=== PATIENT | female | born 1940 | race Caucasian/White ===

== ENCOUNTER 2020-11-05 19:43 | Inpatient (IN) | payer MEDICARE, BC ==
[~2020-11-05] VITALS: Ht 152.4 cm; Wt 60.6 kg
[2020-11-05] MEDS ORDERED: ASPIRIN 81 MG CHEW TABLET PO ONE (20:00)
[2020-11-05] MEDS ORDERED: methylPREDNISolone 125MG 2ML VIAL IV ONE (20:00)
[2020-11-05] MEDS ORDERED: IPRATROPIUM 0.5MG/ALBUTEROL 2.5MG INH SOL UD 3ML (DUONEB) NEB PRN (20:00)
[2020-11-05] MEDS ORDERED: METOPROLOL TART 25 MG TABLET PO ONE (20:15)
[2020-11-05] MEDS: METOPROLOL 5 MG/5 ML VIAL IV SCH ×3 (20:20→20:27)
[2020-11-05 20:27] VITALS: BP 153/93
--- NOTE | 2020-11-05 20:34 | REPVR ---
PROCEDURE INFORMATION: Exam: XR Chest Exam date and time: 11/05/2020 7:59 PM Age: 80 years old Clinical indication: Cough and dyspnea; Additional info: Dyspnea/cough TECHNIQUE: Imaging protocol: XR of the chest. Views: 1 view. COMPARISON: No relevant prior studies available. FINDINGS: Tubes, catheters and devices: Dual chamber cardiac pacer demonstrated with intact wires. Lungs: Bilateral airspace infiltrates. Pleural spaces: Possible small left pleural effusion. Heart/Mediastinum: Status post TAVR. Bones/joints: Status post ORIF proximal left humerus. IMPRESSION: 1. Bilateral airspace infiltrates. 2. Possible small left pleural effusion. Electronically signed by: Chema Rubio On 11/05/2020 20:34:02 PM
[2020-11-05 20:55] LABS: BILIRUBIN,DIRECT 0.4 MG/DL (0.0-0.2); BILIRUBIN,TOTAL 1.6 MG/DL (0.2-1.0); CALCIUM LEVEL 8.5 MG/DL (8.8-10.2); CK-MB VALUE MASS 1.2 NG/ML (<3.6); CREATININE FOR GFR 1.52 MG/DL (0.55-1.30); GLOMERULAR FILTRATION RATE 34.9 (>32); POTASSIUM SERUM 4.2 MEQ/L (3.5-5.1); TOTAL PROTEIN 7.9 GM/DL (6.4-8.2); TROPONIN I 0.09 NG/ML (< 0.10)
[2020-11-05] MEDS ORDERED: ONDANSETRON 4MG/2ML VIAL IV ONE (20:55)
[2020-11-05 21:16] LABS: RSV AMPLIFICATION NEGATIVE (NEGATIVE)
[2020-11-05] MEDS ORDERED: CEFEPIME HCL 2 GM in D5W MINI-BAG PLUS 50 ML IV ONE (21:20)
[2020-11-05 21:29] LABS: BASO # 0.1 10^3/uL (0.0-0.2); BASO % 0.6 % (0.0-1.0); EOS # 0.1 10^3/uL (0.0-0.5); EOS % 0.4 % (0.0-3.0); HEMOGLOBIN 12.9 g/dl (12.0-15.5); LYMPH # 3.6 10^3/uL (1.5-5.0); LYMPH % 18.3 % (24.0-44.0); MONO # 1.3 10^3/uL (0.0-0.8); MONO % 6.4 % (2.0-8.0); NEUTROPHILS # 14.5 10^3/uL (1.5-8.5); NEUTROPHILS % 73.6 % (36.0-66.0); WHITE BLOOD COUNT 19.6 10^3/uL (4.0-10.0)
[2020-11-05] MEDS ORDERED: MOM 30ML SUSPENSION UDC PO PRN (23:00)
[2020-11-05] MEDS ORDERED: ACETAMINOPHEN TAB 650MG DOSE (2X325MG) PO PRN (23:00)
[2020-11-05] MEDS ORDERED: MAALOX 30 ML SUSP *UDC PO PRN (23:00)
[2020-11-05] MEDS ORDERED: HEPARIN SOD (PORCINE) 5000UNITS/ML 1ML VIAL/SYRINGE SC SCH (23:00)
[2020-11-05] MEDS ORDERED: NS 500 ML IV ONE (23:00)
--- NOTE | 2020-11-05 23:43 | HPEPDOC ---
[facility] Medical History & Physical Date of Admission Nov 05, 2020 Date of Service: Nov 05, 2020 History and Physical CHIEF COMPLAINT: shortness of breath HISTORY OF PRESENT ILLNESS: 80-year-old female with a past medical history of suspected mitral and aortic valve repair at [facility], atrial fibrillation status post pacemaker on Eliquis, asthma? Brought to [facility] by EMS after she developed sudden acute onset shortness of breath while in the car with her daughter in the midst of an argument. I spoke to daughter Carolann ([phone]), who reported to me concerns over medication compliance. She knows her mother takes diuretics, but suspects poor compliance and copious water intake. On arrival the patient was found to have a heart rate of approximately 150, blood pressure 138/76, saturating 97% on 4 L of oxygen. Patient continued to desaturate and required BiPAP. ABG showing respiratory acidosis. Patient received 105 mg of IV Solu-Medrol. Patient found to have a lactic acid of 8.2. BNP 3624. Creatinine 1.52. Elevated bilirubin 1.6. Patient received 2 g of cefepime in ER, As well as metoprolol 5 mg IV followed by 25 mg p.o. After ministration of metoprolol heart rate improved to 95 however became hypotensive to approximately 85 systolic. She was given a bolus of 500 cc normal saline. Admitted to hospitalist service for the management of sepsis secondary to suspected pneumonia. PAST MEDICAL HISTORY: mitral and aortic valve repair/replacement at [facility] atrial fibrillation s/p pacemaker asthma PAST SURGICAL HISTORY: pacemaker placement ORIF of the left humerus SOCIAL HISTORY: Patient denies smoking Patient denies etoh use Patient denies illicit drug use FAMILY HISTORY: reviewed with patient, unable to provide. ALLERGIES: Please see below. REVIEW OF SYSTEMS: 10 point ROS completed, relevant findings are noted in HPI. HOME MEDICATIONS: Please see below. PHYSICAL EXAMINATION: VITAL SIGNS: please see below General: NAD, comfortable HEENT: PERRLA, EOMI, sclerae clear Neck: supple, normal ROM, no JVD Respiratory: poor inspiratory effort, no wheeze appreciated CVS: RRR, normal S1, S2, no murmurs Abdo: soft, no masses, no hepatosplenomegaly, BS+, no rebound tenderness Extremities: no edema, pulses 2+ MSK: no joint deformities, normal ROM Neuro: no focal neuro deficits, moving all 4 extremities, CN2-12 intact. Strength 5/5 in all 4 extremities. No nystagmus. Psych: calm, cooperative, AAO x 3 LABORATORY DATA: See below. IMAGING: CXR on 11/05/2020 FINDINGS: Tubes, catheters and devices: Dual chamber cardiac pacer demonstrated with intact wires. Lungs: Bilateral airspace infiltrates. Pleural spaces: Possible small left pleural effusion. Heart/Mediastinum: Status post TAVR. Bones/joints: Status post ORIF proximal left humerus. IMPRESSION: 1. Bilateral airspace infiltrates. 2. Possible small left pleural effusion. MICROBIOLOGY: Please see below. ASSESSMENT: 80-year-old female with a past medical history of suspected mitral and aortic valve repair at [facility], atrial fibrillation status po st pacemaker on Eliquis, asthma, presented with acute onset shortness of breath. Suspected sepsis secondary to community-acquired pneumonia. Patient admitted under hospitalist service to ICU for BiPAP. . PLAN: Acute hypoxic respiratory failure - possibly 2/2 community acquire pneumonia vs acute CHF exacerbation - ABG showing respiratory acidosis - required bipap - pulmonary consult placed with Dr. Arnoldo luke scheduled - s/p 2g cefepime in ER - check blood cx, sputum cx - obtain non contrast CT chest - given patient's PRISCILA, contrast imaging unable to be obtained. Patient is on eliquis, suspicion for PE is low. sepsis 2/2 CAP - WBC 19.6. LA 8.2. Tachycardia and hypotension - s/p 2g IV cefepime - c/w vancomycin and cefepime - obtain MRSA screen, may DC vancomycin upon negative screen - check sputum gram stain, legionella and strep ag Elevated troponin - patient chest pain free on admission; continues to have no CP - initial trop 0.09. Repeat trop 2.62 - EKG showing afib - given ASA 324 mg once. Presently on eliquis (reports last dose 5 pm on 11/05/20) - d/w pharmacy, uncertain dosage at home. Meets criteria for eliquis 2.5 mg BID dosing - will start on lovenox 1 mg/kg q24h adjusted renal dosing - d/w Dr. Banks, cardiology consultation placed - patient wishes to be transferred to one of three facilities: [facility] and [place], [place]. Unfortunately, I was informed by all three facilities that there is no bed availability at this time. I explained this to patient, she wishes to remain at [facility] and proceed with medical mgmt. Suspect acute CHF exacerbation - BNP 3600, crackles at lung bases, CXR c/w pulmnary vascular congestion - check 2D echo - gave 500 cc bolus NS due to hypotension and elevated LA - will give gently diuresis once BP stabilizes. Ordered 20 mg IV lasix, to be injected slowly. Lactic acidosis - increased work of breathing vs sepsis - give 500 cc bolus NS - repeat LA, resolved Afib with RVR - rate improved s/p metoprolol 5 mg IV and metoprolol tartrate 25 mg PO - s/p pacemaker - on eliquis per report, resume - check 2D echo - d/w Dr. Banks, administer 0.5 mg IV digoxin, followed by 0.25 mg IV 8 hours afterwards. Elevated bilirubin - no abdo pain - check liver US - fatty liver infiltration vs congestion hepatopathy PRISCILA on possible CKD - baseline unknown - check renal US - suspect elevated in setting of sepsis - s/p 500 cc bolus, judicious use of IVF given suspect CHF exacerbation Asthma - per patient report - duonebs prn GI ppx: - pantoprazole DVT ppx: - heparin 5000 units q8h SC CODE status: DNR/DNI Contact info: I spoke to Daughter, Jesus [phone] and provided her with an update. I answered all questions in detail. Vital Signs Vital Signs Date Time Temp Pulse Resp B/P (MAP) Pulse Ox O2 Delivery O2 Flow Rate FiO2 11/05/20 23:09 NIPPV (BIPAP/CPAP) 11/05/20 22:45 77 81/51 (61) 100 11/05/20 20:28 97.8 30 4.0 11/05/20 20:21 100 Laboratory Data Labs 24H Laboratory Tests 2 11/05/20 20:07: Immature Granulocyte % (Auto) 0.7, Neutrophils (%) (Auto) 73.6H, Lymphocytes (%) (Auto) 18.3L, Monocytes (%) (Auto) 6.4, Eosinophils (%) (Auto) 0.4, Basophils (%) (Auto) 0.6, Neutrophils # (Auto) 14.5H, Lymphocytes # (Auto) 3.6, Monocytes # (Auto) 1.3H, Eosinophils # (Auto) 0.1, Basophils # (Auto) 0.1, Nucleated Red Blood Cells % (auto) 0.0, Anion Gap 16, Glomerular Filtration Rate 34.9, Lactic Acid Level 8.2*H, Calcium Level 8.5L, Total Bilirubin 1.6H, Direct Bilirubin 0.4H, Aspartate Amino Transf (AST/SGOT) 49H, Alanine Aminotransferase (ALT/SGPT) 26, Alkaline Phosphatase 159H, Total Creatine Kinase 60, Creatine Kinase MB 1.2, Creatine Kinase MB Relative Index 2.00, Troponin I 0.09, EM-[id number]-Type Natriuretic Peptide 3624H, Total Protein 7.9, Albumin 3.0L, Albumin/Globulin Ratio 0.6L, Coronavirus (COVID-19)(PCR) NEGATIVE, Influenza Type A (RT-PCR) NEGATIVE, Influenza Type B (RT-PCR) NEGATIVE, Respiratory Syncytial Virus (PCR) NEGATIVE 11/05/20 20:09: POC pH (Misc Panel) 7.256L, POC Base Excess (Misc Panel) -6.0L, POC Saturated Percent O2 (Misc) 85L, POC pO2 (Misc Panel) 58.0L, POC pCO2 (Misc Panel) 48.1H, POC HCO3 (Misc Panel) 21.4L, POC Total CO2 (Misc Panel) 23.0 CBC/BMP Laboratory Tests 11/05/20 20:07 Microbiology Microbiology 11/05/20 Blood Culture, Received Pending 11/05/20 Blood Culture, Received Pending Home Medications Scheduled Apixaban (Eliquis) 2.5 Mg Tablet, 2.5 MG PO BID Aspirin (Aspirin EC) 81 Mg Tablet.dr, 81 MG PO DAILY Atorvastatin Calcium (Atorvastatin Calcium) 40 Mg Tablet, 40 MG PO DAILY Clotrimazole (Clotrimazole) 10 Mg Fozia, 10 MG MT DAILY Cyanocobalamin (Vitamin B-12) (Vitamin B-12) 1,000 Mcg Tablet, 1,000 MCG PO DAILY Folic Acid/Multivit-Min/Lutein (Multi-Vitamin Gummies) 1 Each Tab.chew, 1 CHW PO DAILY Gabapentin (Gabapentin) 100 Mg Capsule, 100 MG PO TID Levothyroxine Sodium (Synthroid) 88 Mcg Tablet, 88 MCG PO DAILY Pantoprazole Sodium (Pantoprazole Sodium) 40 Mg Tablet., 40 MG PO BID Potassium Chloride (Potassium Chloride) 10 Meq Tab.er.prt, 10 MEQ PO DAILY Sodium Chloride (Ria-128) 2% Drops, 1 DROP OU BID Tiotropium [place] (Spiriva) 18 Mcg Cap.w.dev, 1 INHALATION INH DAILY Torsemide (Torsemide) 10 Mg Tablet, 20 MG PO DAILY Scheduled PRN Nitroglycerin (Nitrostat) 0.4 Mg Tab.subl, 0.4 MG SL NITRO PRN for CHEST PAIN Allergies Coded Allergies: ciprofloxacin (Verified Allergy, Unknown, 11/06/20) ASHLEE VAUGHAN MD Nov 05, 2020 23:43
[2020-11-06] VITALS (24 sets, daily range): BP systolic 81–112; BP diastolic 46–60; PULSE 84; O2SAT 91–96
[2020-11-06] MEDS ORDERED: VANCOMYCIN HCL 1,000 MG, VIAL MATE ADAPTER 1 EACH in NS 250 ML IV ONE (00:30)
--- NOTE | 2020-11-06 01:17 | REPVR ---
PROCEDURE INFORMATION: Exam: CT Chest Without Contrast; Diagnostic Exam date and time: 11/05/2020 11:35 PM Age: 80 years old Clinical indication: Other: Hypoxia; Additional info: Hypoxia, pneumonia? TECHNIQUE: Imaging protocol: Diagnostic computed tomography of the chest without contrast. 3D rendering (Not supervised by radiologist): MIP and/or 3D reconstructed images were created by the technologist. Radiation optimization: All CT scans at this facility use at least one of these dose optimization techniques: automated exposure control; mA and/or kV adjustment per patient size (includes targeted exams where dose is matched to clinical indication); or iterative reconstruction. COMPARISON: CR PORTABLE CHEST X-RAY 11/05/2020 8:21 PM FINDINGS: Tubes, catheters and devices: Left chest pacemaker. Trachea: Small amount of aspirated material in the trachea. Lungs: Extensive patchy bilateral airspace and ground-glass opacities. Pleural spaces: Small right and small to moderate left pleural effusions with adjacent compressive atelectasis. Heart: Status post aortic valve replacement. Cardiomegaly. Severe atherosclerotic disease of the coronary arteries. Small pericardial effusion. Coarsely calcified mitral annulus. Aorta: Atherosclerotic disease of the thoracic aorta. Lymph nodes: Unremarkable. No enlarged lymph nodes. Liver: Mild hepatomegaly. Bones/joints: Status post open reduction internal fixation of a healing left humeral neck fracture. Severe multilevel degenerative disease of the thoracic spine. Degenerative changes in the bilateral acromioclavicular joints. Mild scoliosis. Soft tissues: Unremarkable. IMPRESSION: Small right and small to moderate left pleural effusions with adjacent compressive atelectasis. Extensive patchy bilateral airspace and ground-glass opacities. Suspect congestive heart failure. Cardiomegaly. Small pericardial effusion. Electronically signed by: Cristhian Silverio On 11/06/2020 01:16:26 AM
[2020-11-06] MEDS ORDERED: ASPIRIN ENTERIC 325 MG TAB PO ONE (01:30)
[2020-11-06] MEDS ORDERED: SYNT88TA2 PO (01:43)
[2020-11-06] MEDS ORDERED: POTA10TA16 PO (01:43)
[2020-11-06] MEDS ORDERED: CYAN100050 PO (01:43)
[2020-11-06] MEDS ORDERED: NITR4TASL SL (01:43)
[2020-11-06] MEDS ORDERED: ATOR40TA75 PO (01:43)
[2020-11-06] MEDS ORDERED: MULTCHW12 PO (01:43)
[2020-11-06] MEDS ORDERED: SPIR1CAP INH (01:43)
[2020-11-06] MEDS ORDERED: CLOT10TR MT (01:43)
[2020-11-06] MEDS ORDERED: ELIQ2.5T PO (01:43)
[2020-11-06] MEDS ORDERED: ASPI-161 PO (01:43)
[2020-11-06] MEDS ORDERED: TORS10TA3 PO (01:43)
[2020-11-06] MEDS ORDERED: SODI2OPD OU (01:43)
[2020-11-06] MEDS ORDERED: GABA-1171 PO (01:43)
[2020-11-06] MEDS ORDERED: PANT40TA29 PO (01:43)
[2020-11-06] MEDS ORDERED: HOME MED LIST COMPLETE! XX SCH (01:45)
[2020-11-06] MEDS ORDERED: DIGOXIN INJ 0.5 MG/2 ML AMP (J1160) IV STA (02:03)
[2020-11-06] MEDS ORDERED: APIXABAN 2.5 MG TAB (ELIQUIS) PO SCH ×2 (02:05→09:00)
[2020-11-06] MEDS ORDERED: FUROSEMIDE 20MG/2ML VIAL (J1940) IV ONE (02:05)
--- NOTE | 2020-11-06 02:26 | REPVR ---
PROCEDURE INFORMATION: Exam: US Abdomen, Limited; Right Upper Quadrant Exam date and time: 11/06/2020 1:47 AM Age: 80 years old Clinical indication: Abnormal findings; Abnormal lab test; Elevated liver enzymes; Additional info: Elevated bilirubin TECHNIQUE: Imaging protocol: US abdomen. Real time ultrasound with image documentation. Limited exam focused on the right upper quadrant. COMPARISON: CT Chest without contrast 11/05/2020 11:46 PM FINDINGS: Liver: Mild hepatomegaly. Heterogeneity of the liver parenchyma. Gallbladder: Normal. No gallstones. There is no gallbladder wall thickening. Common bile duct: Normal. No stones. No dilation. Pancreas: Visualized pancreas is unremarkable. Right kidney: 1.2 x 1.4 x 1.6 cm simple right renal cyst. IMPRESSION: Hepatomegaly and generalized nonspecific heterogeneity of the liver parenchyma. Congestive hepatopathy is in the differential. Electronically signed by: Cristhian Silverio On 11/06/2020 02:25:50 AM
[2020-11-06] MEDS ORDERED: ENOXAPARIN 80MG/0.8ML SYRINGE (J1650 PER 10MG) SC SCH (05:00)
[2020-11-06 05:55] LABS: ABG BASE EXCESS -0.2 (-2.0-2.0); ABG HCO3 24.5 MEQ/L (22.0-26.0); ABG O2 SATURATION 98.2 % (95.0-99.0); ABG PARTIAL PRESSURE O2 118.6 mmHg (75.0-100.0); ABG STANDARD HCO3 24.4 MEQ/L (22.0-26.0); ABG TOTAL CO2 25.7 MEQ/L (23.0-31.0); ABG pH (ARTERIAL) 7.405 UNITS (7.350-7.450)
[2020-11-06] MEDS ORDERED: NITROGLYCERIN 0.4 MG SUBL TABLET SL PRN (06:40)
[2020-11-06] MEDS: TIOTROPIUM INHALER/CAPSULE (SPIRIVA) INH SCH (07:37)
[2020-11-06 08:15] LABS: BASO % 0.2 % (0.0-1.0); LYMPH % 7.3 % (24.0-44.0); MEAN CORPUSCULAR HEMOGLOBIN 35.9 pg (27.0-33.0); MEAN CORPUSCULAR VOLUME 99.6 fl (80.0-96.0); MONO # 0.2 10^3/uL (0.0-0.8); MONO % 1.4 % (2.0-8.0); NEUTROPHILS % 90.4 % (36.0-66.0); RED BLOOD COUNT 2.81 10^6/uL (4.00-5.40); WHITE BLOOD COUNT 13.3 10^3/uL (4.0-10.0)
[2020-11-06] MEDS: LEVOTHYROXINE 88MCG TABLET (0.088 MG) PO SCH (08:35)
[2020-11-06] MEDS: PANTOPRAZOLE 40MG VIAL (C9113 PER 1) IV SCH (08:38)
[2020-11-06] MEDS: GABAPENTIN 100 MG CAP PO SCH ×3 (08:39→20:24)
[2020-11-06] MEDS: ASPIRIN 81MG ENTERIC TABLET PO SCH (08:39)
[2020-11-06] MEDS: ATORVASTATIN 20 MG TAB PO SCH (08:39)
[2020-11-06 08:45] LABS: HEMOGLOBIN 10.1 g/dl (12.0-15.5); MEAN CORPUSCULAR HGB CONC 36.1 g/dl (32.0-36.5); PLATELET COUNT, AUTOMATED 172 10^3/uL (150-450)
[2020-11-06] MEDS ORDERED: POTASSIUM CHLORIDE 10MEQ SR TABLET PO SCH (09:00)
[2020-11-06] MEDS ORDERED: APIXABAN 5 MG TAB (ELIQUIS) PO SCH (09:00)
--- NOTE | 2020-11-06 09:18 | ECGEPIP ---
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 Electronically Signed on 11-06-2020 9:17:35 EDT by Riaz Crenshaw
[2020-11-06 09:36] LABS: ALBUMIN 2.3 GM/DL (3.2-5.2); BILIRUBIN,TOTAL 0.9 MG/DL (0.2-1.0); CALCIUM LEVEL 8.2 MG/DL (8.8-10.2); CREATININE FOR GFR 1.55 MG/DL (0.55-1.30); GLOMERULAR FILTRATION RATE 34.2 (>32); MAGNESIUM LEVEL 1.8 MG/DL (1.8-2.4); POTASSIUM SERUM 4.7 MEQ/L (3.5-5.1); TOTAL PROTEIN 6.7 GM/DL (6.4-8.2)
[2020-11-06] MEDS ORDERED: DIGOXIN INJ 0.5 MG/2 ML AMP (J1160) IV ONE (10:00)
--- NOTE | 2020-11-06 17:26 | IPNPDOC ---
Date Seen The patient was seen on 11/06/20. Progress Note SUBJECTIVE: Douglas was seen and examined this morning by the hospitalist service while lying in her intensive care unit bed. Patient had a quite busy overnight. After being admitted. She had had an argument with her daughter yesterday and became acutely short of breath as a result. She was brought into the emergency department where she was found to be hypoxic and hypercarbic, with decision made for BiPAP treatment. She also had atrial arrhythmia with rapid ventricular response. It was found out that patient had recently stopped taking amiodarone within last few months and been started on Cardizem. She had had some chest imaging as a result of being on the amiodarone. Patient was given both IV and oral metoprolol in the ED which made her borderline hypotensive. Patient was then given fluids and developed what appears to be flash pulmonary edema. Patient then received diuretics as a result. In addition, the patient was intolerant of her BiPAP and was switched over to Vapotherm. Upon review, the patient denies at time of morning exam any current or overnight fever, chills, night sweats, chest pain, chest pressure, palpitations. She reports her shortness of breath has improved and denies any associated pleuritic chest pain. She does have a chronic productive cough but always swallows her mucus and is not sure what color it is. She denies any abdominal pain/nause a/vomiting/diarrhea/constipation/melena/hematochezia, denies any flank pain, dysuria, or hematuria. OBJECTIVE PHYSICAL EXAMINATION: VITAL SIGNS: Please see below. GENERAL: Pleasant elderly female lying in ICU bed with telemetry and Vapotherm. She was actually dozing when we entered the room and did not appear to be in any acute distress. HEENT: Normocephalic, atraumatic. Noninjected, anicteric sclera. She has mild conjunctival pallor bilaterally. PERRLA. Oral cavity: Missing upper teeth. MMM. No pharyngeal erythema or exudate appreciated. Neck: Trachea midline. No lymphadenopathy appreciated. CARDIOVASCULAR: On telemetry with borderline bradycardic rate. Irregularly irregular rhythm with some visualized intermittent PVCs on telemetry. Possible 1/6 systolic murmur. 2+ radial pulses bilaterally. No friction rub appreciated. RESPIRATORY: On Vapotherm (65% FiO2, 5 L) and saturating at 94%. No accessory muscle use is visualized. There are bilateral wet crackles throughout most especially in the mid to lower lobes. There is no significant wheezing or rhonchi appreciated. Symmetric chest expansion. ABDOMINAL: Soft, nondistended and nontender. There is no guarding or rigidity. Normoactive bowel sounds present. On her back, there appears to be some moderate amounts of isolated fluid collection but there is no anterior ascites nor fluid shift. EXTREMITIES: Wearing bilateral teds and sequentials. When removed, there is some trace swelling but no bilateral lower extremity pitting edema is appreciated. NEUROLOGICAL: No gross focal neurologic deficits appreciated. Nondysarthric speech. LABORATORY DATA, IMAGING STUDIES, MICROBIOLOGY: Please see below. Portable chest x-ray, 11/05/2020 FINDINGS: Tubes, catheters and devices: Dual chamber cardiac pacer demonstrated with intact wires. Lungs: Bilateral airspace infiltrates. Pleural spaces: Possible small left pleural effusion. Heart/Mediastinum: Status post TAVR. Bones/joints: Status post ORIF proximal left humerus. IMPRESSION: 1. Bilateral airspace infiltrates. 2. Possible small left pleural effusion. Chest CT without contrast, 11/05/2020 FINDINGS: Tubes, catheters and devices: Left chest pacemaker. Trachea: Small amount of aspirated material in the trachea. Lungs: Extensive patchy bilateral airspace and ground-glass opacities. Pleural spaces: Small right and small to moderate left pleural effusions with adjacent compressive atelectasis. Heart: Status post aortic valve replacement. Cardiomegaly. Severe atherosclerotic disease of the coronary arteries. Small pericardial effusion. Coarsely calcified mitral annulus. Aorta: Atherosclerotic disease of the thoracic aorta. Lymph nodes: Unremarkable. No enlarged lymph nodes. Liver: Mild hepatomegaly. Bones/joints: Status post open reduction internal fixation of a healing left humeral neck fracture. Severe multilevel degenerative disease of the thoracic spine. Degenerative changes in the bilateral acromioclavicular joints. Mild scoliosis. Soft tissues: Unremarkable. IMPRESSION: Small right and small to moderate left pleural effusions with adjacent compressive atelectasis. Extensive patchy bilateral airspace and ground-glass opacities. Suspect congestive heart failure. Cardiomegaly. Small pericardial effusion. Liver ultrasound, 11/06/2020 FINDINGS: Liver: Mild hepatomegaly. Heterogeneity of the liver parenchyma. Gallbladder: Normal. No gallstones. There is no gallbladder wall thickening. Common bile duct: Normal. No stones. No dilation. Pancreas: Visualized pancreas is unremarkable. Right kidney: 1.2 x 1.4 x 1.6 cm simple right renal cyst. IMPRESSION: Hepatomegaly and generalized nonspecific heterogeneity of the liver parenchyma. Congestive hepatopathy is in the differential. ASSESSMENT AND PLAN: This is an 80-year-old woman with history of atrial arrhythmia (A. fib/a flutter) on Eliquis with a cardiac pacemaker and s/p suspected mitral and aortic valve replacements, asthma, who presented on the evening of 11/05 with acute shortness of breath following an argument with her daughter. She was found to be in rapid ventricular response with an atrial arrhythmia A. fib versus a f lutter. ABG was unremarkable, but patient had significant multiple lab abnormalities (high lactic, elevated troponins, elevated BNP, and direct hyperbilirubinemia. Was placed on BiPAP which she was intolerant of and switched over to Vapotherm. Patient was unable to be transferred due to lack of space at cardiac facilities and was kept for medical management. #Atrial arrhythmia resulting in rapid ventricular response, improved -Patient has history of a flutter/A. fib, is on Eliquis, and recently stopped amiodarone within the last few months and switched over to Cardizem as outpatient. -Status post 5 mg IV metoprolol and 25 mg oral metoprolol in the ED; patient subsequently became hypotensive -Cardiology was consulted (Dr. Banks): Per recommendations, patient was given 0.5 mg digoxin dose to then follow with 0.25 mg every 8 hours. -Patient's rate was borderline bradycardic and well controlled around 60 upon exam this morning; indicating good response to digoxin -Plan will be to check a digoxin level tomorrow and if therapeutic potentially decrease dose #Pulmonary edema likely secondary to IV fluid hydration -Patient came in with atrial arrhythmia and rapid ventricular response; was subsequently given beta-blockers and became hypotensive; then was given fluid resuscitation. Imaging showed bilateral infiltrates with left pleural effusion and BNP was 3624 (no baseline known) -Patient was started on BiPAP was intolerant of that and switched over to Vapotherm -After the fluids and subsequent pulmonary edema, patient was given diuretics -Echocardiogram was ordered upon admission; upon review, there does not appear to be an echo in patient's records. -Monitoring strict I&O's #Acute hypoxia likely secondary to hyperventilation from argument -Patient presented to the ED with chief complaint of sudden shortness of breath after being in an argument with her daughter most likely was hyperventilating -Initial ABG was unremarkable, yet patient was placed on a BiPAP which she did not tolerate. She was subsequently switched over to Vapotherm. -Patient was titrated down off the Vapotherm. Plan is to switch over to nasal cannula supplemental oxygen. -Respiratory status complicated by likely development of flash pulmonary edema from fluid hydration in the setting of hypotension and was administered diuretics -Patient has history of asthma and duo nebs as needed were started upon admission -Continue to monitor O2 saturations. #Hypotension likely secondary to beta-blockade and diuretics -Upon morning exam, blood pressure is 93/51. Patient was asymptomatic. This was likely result of her beta-blockade in the setting of atrial arrhythmia with rapid ventricular response, then was given diuretics after developing pulmonary edema -We will monitor strict I&O's -Once pressures begin to improve, will resume diuretics for fluid overload #Acute kidney injury on possible chronic kidney disease -Initial creatinine of 1.52 with follow-up of 1.55; GFR was 34; there are no previous GFR or creatinine values in [facility] system on review. -Patient did get fluids initially in the setting of hypotension but then became fluid overloaded and was diuresed -PRISCILA may be secondary to fluctuation in fluid status and short period of time, as well as lactic acidosis -We will continue to monitor repeat metabolic panels -At this time, the fluid overload status is most important to address and once patient becomes consistently normotensive, plan will be to resume diuresis. -Strict monitoring of input and output #Elevated troponins likely secondary to demand ischemia and possible stress from rapid ventricular response due to atrial arrhythmia -Patient's initial troponins were unremarkable at 0.09. On repeat they increase significantly to a peak at 3 AM on 11/06 of 3.36. -Upon trend, came down to 2 during the day and 11/06 -EKG showed atrial flutter/fib with RVR but no significant ST elevations or depressions. -Cardiology has been consulted. Per documentation, the overnight admitting team had tried to assess for transfer to cardiac catheterization capable center. Unfortunately all facilities that were contacted had no spots. -Collaborative decision was made with cardiology and hospitalist service to keep patient here for continued medical management. -Home atorvastatin continued -Patient is status post 1 dose of aspirin 325. #Leukocytosis possibly secondary to respiratory infection versus UTI versus unknown source -Initial WBC was 19 with follow-up decreasing to 13 -Absolute neutrophilia is present; procalcitonin elevated at 4 -Initial UA showed trace leuk esterase and 1+ urine bacteria -Initial lactic acidosis (lactic acid of 8.2 came down to 1.8) -Patient was started on both IV cefepime and vancomycin. Vancomycin has been stopped and we will continue with IV cefepime for now -Blood cultures x2 and urine cultures are pending #Direct hyperbilirubinemia -Initial total bilirubin 1.6, direct bilirubin 0.4 -Patient denied any abdominal pain/nausea/vomiting and exam was relatively unremarkable this morning -Liver ultrasound ordered upon admission which showed hepatomegaly and congestive hepatopathy #Lactic acidosis, resolved -Initial lactic was 8.2 that resolved on repeat to 1.8 -ABG was unremarkable. -Possibly related to congestive hepatopathy as well as PRISCILA and initial impaired ability to clear lactate -Patient also had initial leukocytosis of white blood cell count 19; came down to 13 on repeat -Initial blood cultures x2 are still pending, as is urine culture. UA was abnormal with trace leukocyte esterase and 1+ urine bacteria #Pericardial effusion -Found incidentally on chest CT. Was described as small on the impression of chest CT. -Patient did not have friction rub on exam. -Patient developed flash pulmonary edema and fluid overload upon admission. -Once pressures improved and are consistently normotensive, plan will be to resume diuresis #Reported history of asthma -As needed duo nebs added in the setting of acute hypoxia upon admission -Home Spiriva continued -Patient has now been able to transition to nasal cannula supplemental oxygen. #Abnormal UA -Initial UA showed trace leukocyte Estrace with 1+ urine bacteria -Urine culture remains pending #History of hypothyroidism -Home levothyroxine continued #DVT prophylaxis: We will resume patient's home Eliquis dose #GI prophylaxis: Continue with pantoprazole. CODE STATUS: DNR/DNI Disposition: Pending continued improvement to consistent normotensive pressures with plan to diurese in setting of fluid overload. Continue to monitor downtrend of troponins, control of heart rate, and improved leukocytosis. Of note, patient's daughter and contact center director is Carolann ([phone]). GME ATTESTATION My faculty preceptor for this patient encounter was physically present during the encounter and was fully available. All aspects of the patient interview, examination, medical decision making process, and medical care plan development were reviewed and approved by the faculty preceptor. The faculty preceptor is aware and concurs with the plan as stated in the body of this note and will attest to such by his/her cosignature. ATTENDING NOTE I personally examined and discussed the presenting history of with resident team. We discussed his findings, studies and management and I agree with the thorough summary of the findings and the assessment and plan. VS, I&O, 24H, Fishbone Vital Signs/I&O Vital Signs Date Time Temp Pulse Resp B/P (MAP) Pulse Ox O2 Delivery O2 Flow Rate FiO2 11/06/20 14:00 64 112/57 (75) 98 Nasal Cannula 4.0 11/06/20 12:00 97.2 16 11/06/20 07:06 60 I&O- Last 24 Hours up to 6 AM 11/06/20 06:00 Intake Total 390 ml Output Total 350 ml Balance 40 ml Laboratory Data 24H LABS Laboratory Tests 2 11/05/20 20:07: Immature Granulocyte % (Auto) 0.7, Neutrophils (%) (Auto) 73.6H, Lymphocytes (%) (Auto) 18.3L, Monocytes (%) (Auto) 6.4, Eosinophils (%) (Auto) 0.4, Basophils (%) (Auto) 0.6, Neutrophils # (Auto) 14.5H, Lymphocytes # (Auto) 3.6, Monocytes # (Auto) 1.3H, Eosinophils # (Auto) 0.1, Basophils # (Auto) 0.1, Nucleated Red Blood Cells % (auto) 0.0, Anion Gap 16, Glomerular Filtration Rate 34.9, Lactic Acid Level 8.2*H, Calcium Level 8.5L, Total Bilirubin 1.6H, Direct Bilirubin 0.4H, Aspartate Amino Transf (AST/SGOT) 49H, Alanine Aminotransferase (ALT/SGPT) 26, Alkaline Phosphatase 159H, Total Creatine Kinase 60, Creatine Kinase MB 1.2, Creatine Kinase MB Relative Index 2.00, Troponin I 0.09, FK-Auo-P-Type Natriuretic Peptide 3624H, Total Protein 7.9, Albumin 3.0L, Albumin/Globulin Ratio 0.6L, Coronavirus (COVID-19)(PCR) NEGATIVE, Influenza Type A (RT-PCR) NEGATIVE, Influenza Type B (RT-PCR) NEGATIVE, Respiratory Syncytial Virus (PCR) NEGATIVE 11/05/20 20:09: POC pH (Misc Panel) 7.256L, POC Base Excess (Misc Panel) -6.0L, POC Saturated Percent O2 (Misc) 85L, POC pO2 (Misc Panel) 58.0L, POC pCO2 (Misc Panel) 48.1H, POC HCO3 (Misc Panel) 21.4L, POC Total CO2 (Misc Panel) 23.0 11/06/20 00:22: Troponin I 2.62#*H 11/06/20 00:24: Lactic Acid Followup at 4 Hours 1.8 11/06/20 01:20: Methicillin-Resist S.aureus DNA PCR NOT DETECTED 11/06/20 02:57: Troponin I 3.36#*H 11/06/20 03:13: Urine Color HECTOR, Urine Appearance CLOUDYH, Urine pH 5.0, Urine Specific Ruth 1.014, Urine Protein 2+H, Urine Glucose (UA) NEGATIVE, Urine Ketones NEGATIVE, Urine Blood NEGATIVE, Urine Nitrite NEGATIVE, Urine Bilirubin NEGAT RAMIN, Urine Urobilinogen 2.0H, Urine Leukocyte Esterase TRACEH, Urine WBC (Auto) 12H, Urine RBC (Auto) 4H, Urine Hyaline Casts (Auto) 12, Urine Bacteria (Auto) 1+H, Urine Squamous Epithelial Cells 2, Urine Calcium Oxalate Cryst (Auto) SMALL, Urine Amorphous Sediment SMALLH, Urine Granular Casts (Auto) 4, Urine Mucus (Auto) SMALL, Urine Sperm (Auto) 11/06/20 05:45: Blood Gas Bicarbonate Standard 24.4, Arterial Blood pH 7.405, Arterial Blood Partial Pressure CO2 40.0, Arterial Blood Partial Pressure O2 118.6H, Arterial Blood Total CO2 25.7, Arterial Blood HCO3 24.5, Arterial Blood Base Excess -0.2, Arterial Blood Oxygen Saturation 98.2 11/06/20 07:04: Procalcitonin 4.09 11/06/20 07:09: Immature Granulocyte % (Auto) 0.7, Neutrophils (%) (Auto) 90.4H, Lymphocytes (%) (Auto) 7.3L, Monocytes (%) (Auto) 1.4L, Eosinophils (%) (Auto) 0.0, Basophils (%) (Auto) 0.2, Neutrophils # (Auto) 12.0H, Lymphocytes # (Auto) 1.0L, Monocytes # (Auto) 0.2, Eosinophils # (Auto) 0.0, Basophils # (Auto) 0.0, Nucleated Red Blood Cells % (auto) 0.0, Anion Gap 10, Glomerular Filtration Rate 34.2, Calcium Level 8.2L, Magnesium Level 1.8, Total Bilirubin 0.9, Aspartate Amino Transf (AST/SGOT) 50H, Alanine Aminotransferase (ALT/SGPT) 27, Alkaline Phosphatase 110, Troponin I 3.00*H, Total Protein 6.7, Albumin 2.3#L, Albumin/Globulin Ratio 0.5L 11/06/20 10:54: Methicillin-Resist S.aureus DNA PCR NOT DETECTED 11/06/20 11:48: Troponin I 2.44*H CBC/BMP Laboratory Tests 11/05/20 20:07 11/06/20 07:09 Microbiology Microbiology 11/06/20 Urine Culture, Received Pending 11/05/20 Blood Culture, Received Pending 11/05/20 Blood Culture, Received Pending JANINE CAMPOS D.O. Nov 06, 2020 17:26 EDMUNDO ALCANTAR MD Nov 06, 2020 18:17
[2020-11-06] MEDS ORDERED: VANCOMYCIN HCL 1,000 MG, VIAL MATE ADAPTER 1 EACH in NS 250 ML IV SCH (18:00)
[2020-11-06] MEDS: APIXABAN 2.5 MG TAB (ELIQUIS) PO SCH (20:24)
[2020-11-06] MEDS ORDERED: CEFEPIME HCL 2 GM in D5W MINI-BAG PLUS 50 ML IV SCH (21:00)
[2020-11-07] VITALS (7 sets, daily range): BP systolic 103–125; BP diastolic 56–75
[2020-11-07 05:46] LABS: ALBUMIN 2.3 GM/DL (3.2-5.2); BILIRUBIN,TOTAL 0.6 MG/DL (0.2-1.0); CALCIUM LEVEL 8.4 MG/DL (8.8-10.2); CREATININE FOR GFR 1.39 MG/DL (0.55-1.30); GLOMERULAR FILTRATION RATE 38.7 (>32); TOTAL PROTEIN 6.2 GM/DL (6.4-8.2)
[2020-11-07 05:47] LABS: DIGOXIN LEVEL 1.4 NG/ML (0.5-2.0); MAGNESIUM LEVEL 1.9 MG/DL (1.8-2.4)
[2020-11-07] MEDS: LEVOTHYROXINE 88MCG TABLET (0.088 MG) PO SCH (06:00)
[2020-11-07] MEDS: TIOTROPIUM INHALER/CAPSULE (SPIRIVA) INH SCH (07:57)
[2020-11-07] MEDS: GABAPENTIN 100 MG CAP PO SCH ×3 (08:57→20:47)
[2020-11-07] MEDS: ASPIRIN 81MG ENTERIC TABLET PO SCH (08:57)
[2020-11-07] MEDS: PANTOPRAZOLE 40MG VIAL (C9113 PER 1) IV SCH (08:57)
[2020-11-07] MEDS: ATORVASTATIN 20 MG TAB PO SCH (08:57)
[2020-11-07] MEDS: APIXABAN 2.5 MG TAB (ELIQUIS) PO SCH ×2 (08:57→20:47)
[2020-11-07] MEDS ORDERED: APIXABAN 5 MG TAB (ELIQUIS) PO SCH (09:00)
[2020-11-07 09:32] LABS: BASO % 0.2 % (0.0-1.0); HEMATOCRIT 25.1 % (36.0-47.0); HEMOGLOBIN 9.2 g/dl (12.0-15.5); LYMPH # 1.3 10^3/uL (1.5-5.0); LYMPH % 10.8 % (24.0-44.0); MEAN CORPUSCULAR HEMOGLOBIN 37.4 pg (27.0-33.0); MEAN CORPUSCULAR HGB CONC 36.7 g/dl (32.0-36.5); MONO % 8.6 % (2.0-8.0); NEUTROPHILS # 9.3 10^3/uL (1.5-8.5); PLATELET COUNT, AUTOMATED 171 10^3/uL (150-450); RED BLOOD COUNT 2.46 10^6/uL (4.00-5.40); WHITE BLOOD COUNT 11.7 10^3/uL (4.0-10.0)
[2020-11-07] MEDS: TORSEMIDE 10 MG TABLET PO SCH ×2 (11:03→18:16)
[2020-11-07] MEDS: CEFDINIR 300 MG CAP (OMNICEF) PO SCH (11:03)
[2020-11-07] MEDS: CYANOCOBALAMIN 500 MCG TAB PO SCH (11:03)
--- NOTE | 2020-11-07 15:52 | IPNPDOC ---
Date Seen The patient was seen on 11/07/20. Progress Note SUBJECTIVE: Donita was seen and examined this morning by the hospitalist service while lying in her ICU bed. She reports no significant issues overnight and was able to sleep pretty soundly throughout the evening. She denies any chest pain, chest pressure, or palpitations, either currently or during the overnight. She does not feel as if she is working harder to breathe and denies any pleuritic chest pain or dyspnea. Her appetite remains good and she has been both voiding and having bowel movements without any issues. She denies any significant pain at this time and is currently saturating well on 1 L nasal cannula supplemental oxygen. The patient is preparing to eat her breakfast when he came in the room. OBJECTIVE PHYSICAL EXAMINATION: VITAL SIGNS: Please see below. GENERAL: Pleasant elderly female lying in ICU bed on supplemental nasal cannula oxygen. She appears in no acute distress. HEENT: Normocephalic, atraumatic. Noninjected, anicteric sclera. She has mild conjunctival pallor bilaterally. PERRLA. Oral cavity: Edentulous. MMM. No pharyngeal erythema or exudate appreciated. Neck: Trachea midline. No lymphadenopathy appreciated. CARDIOVASCULAR: Patient remains on telemetry. Borderline bradycardic rate with irregularly irregular rhythm. There is a physiological split of S2 (best appreciated over the right second parasternal intercostal space). There is a 2/6 systolic murmur best appreciated over the left second parasternal intercostal space. 2+ radial pulses bilaterally. There is no friction rub appreciated with patient leaning forward. RESPIRATORY: Patient is on 1 L nasal cannula supplemental oxygen and saturating at 91%. When she takes off the NC, she desaturated slightly to 87-88%. no accessory muscle use. Metric chest expansion. There remain bilateral crackles posteriorly from the mid lung area onto the bases, but the intensity the crackles is moderately decreased from yesterday's exam. Chest: There are multiple scattered brownish colored macules and papules overlying the neck and chest. ABDOMINAL: Soft, nondistended and nontender. There is no guarding or rigidity. Normoactive bowel sounds present. No CVA tenderness. EXTREMITIES: There is trace pitting edema bilateral lower extremities. 2+ radial pulses bilaterally. NEUROLOGICAL: No gross focal neurologic deficits appreciated. Nondysarthric speech. LABORATORY DATA, IMAGING STUDIES, MICROBIOLOGY: Please see below. Portable chest x-ray, 11/05/2020 FINDINGS: Tubes, catheters and devices: Dual chamber cardiac pacer demonstrated with intact wires. Lungs: Bilateral airspace infiltrates. Pleural spaces: Possible small left pleural effusion. Heart/Mediastinum: Status post TAVR. Bones/joints: Status post ORIF proximal left humerus. IMPRESSION: 1. Bilateral airspace infiltrates. 2. Possible small left pleural effusion. Chest CT without contrast, 11/05/2020 FINDINGS: Tubes, catheters and devices: Left chest pacemaker. Trachea: Small amount of aspirated material in the trachea. Lungs: Extensive patchy bilateral airspace and ground-glass opacities. Pleural spaces: Small right and small to moderate left pleural effusions with adjacent compressive atelectasis. Heart: Status post aortic valve replacement. Cardiomegaly. Severe atherosclerotic disease of the coronary arteries. Small pericardial effusion. Coarsely calcified mitral annulus. Aorta: Atherosclerotic disease of the thoracic aorta. Lymph nodes: Unremarkable. No enlarged lymph nodes. Liver: Mild hepatomegaly. Bones/joints: Status post open reduction internal fixation of a healing left humeral neck fracture. Severe multilevel degenerative disease of the thoracic spine. Degenerative changes in the bilateral acromioclavicular joints. Mild scoliosis. Soft tissues: Unremarkable. IMPRESSION: Small right and small to moderate left pleural effusions with adjacent compressive atelectasis. Extensive patchy bilateral airspace and ground-glass opacities. Suspect congestive heart failure. Cardiomegaly. Small pericardial effusion. Liver ultrasound, 11/06/2020 FINDINGS: Liver: Mild hepatomegaly. Heterogeneity of the liver parenchyma. Gallbladder: Normal. No gallstones. There is no gallbladder wall thickening. Common bile duct: Normal. No stones. No dilation. Pancreas: Visualized pancreas is unremarkable. Right kidney: 1.2 x 1.4 x 1.6 cm simple right renal cyst. IMPRESSION: Hepatomegaly and generalized nonspecific heterogeneity of the liver parenchyma. Congestive hepatopathy is in the differential. ASSESSMENT AND PLAN: This is an 80-year-old woman with history of atrial arrhythmia (A. fib/a flutter) on Eliquis with a cardiac pacemaker and s/p suspected mitral and aortic valve replacements, and asthma, who presented on the evening of 11/05 with acute shortness of breath following an argument with her daughter. She was found to be in rapid ventricular response with an atrial arrhythmia A. fib vs flutter. ABG was unremarkable, but patient had significant multiple lab abnormalities (high lactic, elevated troponins, elevated BNP, and direct hyperbilirubinemia. Was placed on BiPAP which she was intolerant of and switched over to Vapotherm. Patient was unable to be transferred due to lack of space at cardiac facilities and was kept for medical management. On 11/07, patient's respiratory status had significantly improved and her pressures became normotensive. She was downgraded to the PCU. #Atrial arrhythmia resulting in rapid ventricular response, stable -Patient has history of a flutter/A. fib, is on Eliquis, and recently stopped amiodarone within the last few months and switched over to Cardizem as outpatient. -S/p 5 mg IV metoprolol and 25 mg oral metoprolol in the ED; patient subsequently became hypotensive -Cardiology was consulted (Dr. Banks): Per recommendations, patient was given 0.5 mg digoxin dose to then follow with 0.25 mg every 8 hours. -Digoxin level on morning of 11/07 was 1.4 -Dr. Banks transitioned pt's eliquis dosing to 2.5 mg BID (age > 80yo, ARF w/ sCr > 1.5) -Patient has been asymptomatic for the past 24 hours denying any chest pain, palpitations, or chest pressure -Continue with telemetry; downgraded to PCU status on 11/07 #Acute pulmonary edema likely secondary to IV fluid hydration, improved -Patient came in with atrial arrhythmia and rapid ventricular response; was subsequently given beta-blockers and became hypotensive; then was given fluid resuscitation. Imaging showed bilateral infiltrates with left pleural effusion and BNP was 3624 (no baseline known) -Patient was started on BiPAP - - was intolerant of that - - and initially switched over to Vapotherm. Patient has had no dyspnea for the past 24 hours and was transitioned on 11/06 to nasal cannula supplemental oxygen. -After the fluids and subsequent pulmonary edema, patient was given diuretics -On 11/07 exam, patient was saturating well and only 1 L of nasal cannula and will be transition to room air; downgraded to PCU status. -Echocardiogram was ordered upon admission and executed on 11/06 (the impression has yet to be filed) -upon review, there does not appear to be an echo in patient's records. -Patient has made decent urine output (650 mL midnight to midnight , and 500 cc since midnight 11/07); blood pressure has returned to normotensive range (118/62 on morning of 11/07) -will resume patient's home diuretic medication (torsemide 20 mg daily) #Acute hypoxia likely secondary to hyperventilation from argument, resolved -Patient presented to the ED with chief complaint of sudden shortness of breath after being in an argument with her daughter most likely was hyperventilating -Presenting oxygen saturation in the ED was measured at 66%, but to other measurements at the same time that followed were 97%. -Initial ABG was unremarkable, yet patient was placed on a BiPAP which she did not tolerate. She was subsequently switched over to Vapotherm. -Patient was titrated down off the Vapotherm on morning of 11/06 and transition to nasal cannula supplemental oxygen. 11/07, she will be transitioned to room air. -Respiratory status complicated by likely development of flash pulmonary edema from fluid hydration in the setting of hypotension and was administered diuretics -Patient has history of asthma and duo nebs as needed were started upon admission, home Spiriva continued -Has been asymptomatic from respiratory standpoint for the past 24-hour #Hypotension likely secondary to beta-blockade and diuretics, improved -This was likely result of her beta-blockade in the setting of atrial arrhythmia with rapid ventricular response, then was given diuretics after developing pul monary edema -Pressure on morning of 11/07 was 118/62. Patient remains asymptomatic. -Patient's urine output has improved over the past 24 hours (last midnight to midnight was 0.4 mL/KG/hour) -Patient's home diuretic medication was continued on 11/07 (torsemide 20 mg daily) -Continue to monitor intake and output. #Acute kidney injury on possible chronic kidney disease, improved -Potentially secondary to significant fluid shifts related to fluid hydration and then diuresis in a short period of time as well as lactic acidosis -Creatinine on 11/07 improved to 1.39 (was 1.55 on 11/06) w/ GFR was 34; there are no previous GFR or creatinine values in [facility] system on review. -Patient did get fluids initially in the setting of hypotension but then became fluid overloaded and was diuresed -Continue to monitor and repeat metabolic panels -Patient returned to normotensive range on 11/07; home diuretic medication was resumed (torsemide 20 mg daily). -Continue with I and O monitoring #Elevated troponins likely secondary to demand ischemia and possible cardiac stress from rapid ventricular response due to atrial arrhythmia, improved -Patient's initial troponins were unremarkable at 0.09. On repeat they increase significantly to a peak at 3 AM on 11/06 of 3.36. -Upon trend, came down to 2.44 on 11/06 -EKG showed atrial flutter/fib with RVR but no significant ST elevations or depressions. -Cardiology has been consulted. Per documentation, the overnight admitting team had tried to assess for transfer to cardiac catheterization capable center. Unfortunately all facilities that were contacted had no spots. -Collaborative decision was made with cardiology and hospitalist service to keep patient here for continued medical management. -Home atorvastatin continued -Patient is status post 1 dose of aspirin 325. #Leukocytosis possibly secondary to community-acquired pneumonia, improving -WBC 11.7 on 11/07; absolute neutrophilia remains present present; procalcitonin elevated at 4 -Initial WBC was 19 (11/05) with follow-up decreasing to 13 (11/06) -Imaging upon admission showed bilateral infiltrates -Initial UA showed trace leuk esterase and 1+ urine bacteria, urine culture negative -Initial lactic acidosis (lactic acid of 8.2 came down to 1.8) -Patient was started on both IV cefepime and vancomycin. Vancomycin was stopped on evening of 11/05 (took for 1 day). IV cefepime was stopped on 11/07 after 3 days. -Patient transitioned to cefdinir on 11/07 (day #1) -Blood cultures x2 upon admission showed no growth for 24 hours -Urine culture showed no growth #Direct hyperbilirubinemia, resolved -Total bilirubin 1.9 and direct bilirubin 0.6 on 11/07; this bustillo 2 consecutive days of values WNL -Initial total bilirubin 1.6, direct bilirubin 0.4 Patient continues to deny abdominal pain/nausea/vomiting and physical exam over the past 2 days has been unremarkable. -Liver ultrasound ordered upon admission which showed hepatomegaly and congestive hepatopathy #Lactic acidosis, resolved -Initial lactic was 8.2 that resolved on repeat to 1.8 -ABG was unremarkable. -Possibly related to congestive hepatopathy as well as PRISCILA and initial impaired ability to clear lactate -Patient also had initial leukocytosis of white blood cell count 19; came down t o 13 on repeat -Initial blood cultures x2 are still pending, as is urine culture. UA was abnormal with trace leukocyte esterase and 1+ urine bacteria #Pericardial effusion -Found incidentally on chest CT. Was described as small on the impression of chest CT. -Patient did not have friction rub on exam. -Patient developed flash pulmonary edema and fluid overload upon admission. -Once pressures improved and are consistently normotensive, plan will be to resume diuresis #Reported history of asthma -As needed duo nebs added in the setting of acute hypoxia upon admission -Home Spiriva continued -Patient was transitioned 11/06 to nasal cannula supplemental oxygen and will be transitioned on 11/07 to room air #Abnormal UA with no growth on urine culture -Initial UA showed trace leukocyte Estrace with 1+ urine bacteria -Urine culture showed no growth -Patient denies any dysuria, hematuria, or flank tenderness #History of hypothyroidism -Home levothyroxine continued #DVT prophylaxis: Eliquis 2.5 mg twice daily #GI prophylaxis: Continue with pantoprazole. CODE STATUS: DNR/DNI Disposition: Patient downgraded to PCU status today. With continued stability overnight into 11/08, likely discharge to follow on 11/08. Of note, patient's daughter and contact lens fitter is Carolann ([phone]). GME ATTESTATION My faculty preceptor for this patient encounter was physically present during the encounter and was fully available. All aspects of the patient interview, examination, medical decision making process, and medical care plan development were reviewed and approved by the faculty preceptor. The faculty preceptor is aware and concurs with the plan as stated in the body of this note and will attest to such by his/her cosignature. ATTENDING NOTE I personally examined the patient together with the medical student and we ob tained the presenting history together as she detailed that she has a history of having "anxiety with increased HR when she becomes upset" and her presentation was triggered by an argument she had with her daughter that she was visiting. She was otherwise now back on room air, rate controlled in Aflutter, and normotensive and looking forward to working with PT so that she can get home soon. We discussed his findings, investigative results and I agree with the above noted findings, assessment and plan. VS, I&O, 24H, Fishbone Vital Signs/I&O Vital Signs Date Time Temp Pulse Resp B/P (MAP) Pulse Ox O2 Delivery O2 Flow Rate FiO2 11/07/20 12:00 97.6 79 18 109/59 (76) 91 Room Air 11/07/20 08:00 1.0 11/06/20 07:06 60 I&O- Last 24 Hours up to 6 AM 11/07/20 05:59 Intake Total 700 ml Output Total 950 ml Balance -250 ml Laboratory Data 24H LABS Laboratory Tests 2 11/07/20 04:56: Immature Granulocyte % (Auto) 0.4, Neutrophils (%) (Auto) 80.0H, Lymphocytes (%) (Auto) 10.8L, Monocytes (%) (Auto) 8.6H, Eosinophils (%) (Auto) 0.0, Basophils (%) (Auto) 0.2, Neutrophils # (Auto) 9.3H, Lymphocytes # (Auto) 1.3L, Monocytes # (Auto) 1.0H, Eosinophils # (Auto) 0.0, Basophils # (Auto) 0.0, Nucleated Red Blood Cells % (auto) 0.0, Anion Gap 5L, Glomerular Filtration Rate 38.7, Calcium Level 8.4L, Magnesium Level 1.9, Total Bilirubin 0.6, Aspartate Amino Transf (AST/SGOT) 36, Alanine Aminotransferase (ALT/SGPT) 25, Alkaline Phosphatase 97, Total Protein 6.2L, Albumin 2.3L, Albumin/Globulin Ratio 0.6L, Digoxin Level 1.4 CBC/BMP Laboratory Tests 11/07/20 04:56 Microbiology Microbiology 11/06/20 Urine Culture - Final, Complete 11/05/20 Blood Culture - Preliminary, Resulted No growth after 24 hours . All specim... 11/05/20 Blood Culture - Preliminary, Resulted No growth after 24 hours . All specim... JANINE CAMPOS D.O. Nov 07, 2020 15:52 EDMUNDO ALCANTAR MD Nov 08, 2020 09:09
--- NOTE | 2020-11-07 16:42 | CR ---
CONSULTATION DATE: 11/05/2020 REQUESTING PHYSICIAN: Dr. Marvin Hayes CONSULTING PHYSICIAN: Dr. Jose F Banks INDICATION: Atrial fibrillation and congestive heart failure. HISTORY OF PRESENT ILLNESS: Mrs. Grissom is previously unknown to me. She is actually residing in the [place] area and was visiting here her daughter yesterday when apparently during some form of argument in the car she became fairly suddenly short of breath and presented to the Emergency Room. She was found to be in atrial fibrillation with rapid ventricular response and had evidence for congestive heart failure. She was given initially Solu-Medrol but then also diuretics and Metoprolol for rate control. It slowed down her heart rate, but she became hypotensive even though she was simultaneously also on BIPAP. Consequently a bolus of fluid was given with improvement of the blood pressure. The initial cardiac enzymes were negative but second set of cardiac enzymes became elevated and I was contacted by Dr. Hayes. Based on our discussion, she was given half a mg of IV Digoxin that led to slowing down of her heart rate and overall improvement. By the time I saw her in the morning she was reporting feeling much better. She denies having any chest discomfort yesterday or throughout the night. Unfortunately the patient has a mild form of dementia, and consequently the history provided by her is fairly limited. Nevertheless, I was able to access records of her Movie Actor, Dr. Zamora and learn additional relevant information. 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 She also has established coronary artery disease with a remote history of coronary interventions. It appears that she was chronically on Amiodarone but then the medication was discontinued earlier this year, probably around June or July. I am not totally clear what was the rationale for its discontinuation, but it was probably a combination of lack of effectiveness and suspicion for pulmonary toxicity. At her baseline she is using 120 mg of slow release Diltiazem for rate control of atrial fibrillation. During her last office visit which was in June of 2020 she was doing clinically well. PAST MEDICAL HISTORY: 1. History of TAVR in 2018. 2. History of Dominique Clip placement in 2018. 3. History of coronary artery disease. The last cardiac catheterization was in 2019 during which he received stent to first diagonal artery. It is probable that there were prior cardiac catheterizations, but I do not have that information available. 4. Last echocardiogram in June 2020 revealed preserved left ventricular systolic function without wall motion abnormalities. There was severe bi-atrial enlargement, normal function of aortic bioprosthesis with only trivial stenosis. There was mild mitral stenosis, mild to moderate mitral insufficiency, mild tricuspid insufficiency and moderate pulmonary hypertension. A small pericardial effusion was also noted. 5. Chronic atrial fibrillation, history of sick sinus syndrome, history of pacemaker placement. 6. Hypertension. 7. Dyslipidemia. 8. Asthma. PAST SURGICAL HISTORY: 1. Left humeral ORIF. 2. Pacemaker placement. FAMILY HISTORY: The patient's family history is no longer relevant. The patient does not remember what her parents of. SOCIAL HISTORY: The patient does not smoke. She does not drink alcohol. She resides in the [place] area. ALLERGIES: No allergies. HOME MEDICATIONS: According to records from Dr. Zamora: 1. Atorvastatin 40 mg daily. 2. Aspirin 81 mg daily. 3. Diltiazem 120 mg daily. 4. Neurontin. 5. Eliquis 2.5 mg twice daily. 6. Levothyroxine 88 mcg daily. 7. Protonix 40 mg daily. 8. Torsemide 20 mg daily. REVIEW OF SYSTEMS: She denies any recent chest pain, nausea, vomiting or diarrhea. She does not recall and recent changes in her weight. At her baseline she can ambulate small distances without major difficulty. Unfortunately she had a very limited understanding of her medical history. The rest of the review of systems is as HPI or negative. PHYSICAL EXAMINATION: GENERAL APPEARANCE: Mrs. Grissom is an elderly, frail appearing female who is in no distress. During my exam she was laying flat in the hospital bed without any obvious difficulty. VITAL SIGNS: Blood pressure was 93/51, heart rate 63, beats per minute with principally ventricularly paced rhythm. She was afebrile and saturated in the low to mid 90's on 6 liters of oxygen via nasal cannula. NECK: Her JVP appears minimally elevated. I do not appreciate a carotid bruit. HEART: Regular rhythm with systolic ejection murmur, best heard over the aortic valve, approximately 3/6 in intensity, the second closing sound is well preserved. I do not appreciate any murmur of mitral stenosis but there is a blowing murmur best heard in the axilla, corresponding to M.R. LUNGS: Fine Velcro type of quality crackles that are felt throughout, more on the lower than upper lobes. ABDOMEN: Soft, nontender, no obvious guarding, no hepatosplenomegaly. EXTREMITIES: Free of significant edema. Peripheral pulses are palpable bilaterally. NEUROLOGICAL: She is alert and oriented to place and time and person. I do not appreciate any focal dysfunction. There is a pacemaker in the left subclavian pocket. LABORATORY DATA: As of this morning basic metabolic panel reveals sodium of 136, potassium 4.7, BUN 28, creatinine 1.55, GFR 34 and glucose 159. Normal liver function tests. Troponin was initially negative but then at night was 3.36 and has been trending down since. Albumin is 2.3. CBC - WBC count 13.3, hemoglobin 10.1, hematocrit 28, and platelet count 172,000. She tested negative for SARS influenza and MRSA. Urine is negative for glucose but positive for protein. IMAGING DATA: EKG revealed initially atrial fibrillation with rapid ventricular response and subsequently atrial fibrillation with principally ventricular spacing. She had a chest CT without contrast that revealed bilateral pleural effusions, a little bit bigger on the left and was felt to be small to moderate size. Bilateral air space discussed suggestive of congestive heart failure and small pericardial effusion. Prominent atherosclerosis of the thoracic aorta is also noted. Liver ultrasound was also performed that revealed hepatomegaly, again suggestive of possible congestion. ASSESSMENT AND PLAN: Mrs. Grissom is an 80-year-old female who has established coronary artery disease and congestive heart failure in the setting of chronic atrial fibrillation, sick sinus syndrome and pacemaker placement. She presented with congestive heart failure in the setting of atrial fibrillation with rapid ventricular response that seems to have started relatively abruptly after an argument with her daughter. I do suspect that the uncontrolled rate most likely was the precipitating event. When I saw her in the morning she already felt markedly improved with better rate control. I do not appreciate any gross volume overloaded state even though she undoubtedly has congestive heart failure. Unfortunately management is complicated by hypotension. At this point I would suggest to continue rate control strategy first. She received a total of 0.75 mg of Digoxin and we will obtain a Digoxin level tomorrow and we will dose additional doses accordingly. Because of relatively low blood pressure, her Cardizem has been on hold and we will stay away from additional doses of Metoprolol at this moment. She will be continuing with anticoagulation. She has elevated troponin but unfortunately there is no hospital with cardiac catheterization capability that would accept her and consequently she will be left with medical management. I do believe that because the probability of cardiac catheterization is very low, we can continue Eliquis. Because of her age and renal dysfunction, the appropriate dose is 2.5 mg twice a day. As far as congestive heart failure is concerned, it is probably a combination of valvular heart disease and atrial fibrillation with rapid ventricular response. She already seems to be markedly improved just with better rate control. Hopefully her blood pressure will improve and we can restart some of her diuretics. As of this morning I would hold on that pending her clinical course. As far as coronary artery disease is concerned, she does have significant troponin elevation even though she did not have any chest discomfort. EKG is not interpretable due to ventricular pacing. MTDD
--- NOTE | 2020-11-07 20:23 | ECHO ---
ECHOCARDIOGRAM DATE OF PROCEDURE: 11/06/2020 Age: Gender: Female Height: 152 cm Weight: 65 kg REFERRING PHYSICIAN: Marvin Hayes M.D. INDICATION: Congestive heart failure, edema. MEASUREMENTS: IVS 1.2 cm LV 4.6 cm LVPW 1.1 cm LA 4.3 cm Aorta 3.1 cm Left atrial volume index 58 IVC 2.1 cm FINDINGS: This study is of good technical quality. Underlying atrial fibrillation with ventricular pacing. Left ventricle is of normal size. There is septal wall motion abnormality consistent with right ventricular pacing, but overall preserved left ventricular (LV) systolic function. Estimated left ventricular ejection fraction (LVEF) 60-65%. I do not appreciate any additional wall motion abnormalities. Right ventricle is dilated and hypokinetic. There is severe biatrial enlargement. There is bioprosthetic aortic valve that was poorly visualized. This patient has known transcatheter aortic valve replacement (TAVR). There are very heavy degenerative abnormalities of mitral valve with severe mitral annular calcifications and thickening of mitral leaflets. Mitral clip is seen. Tricuspid valve appears normal. Pulmonic valve also appears normal. There is a small to moderate size circumferential, but noncompressive, pericardial effusion. Inferior vena cava is dilated and there is limited collapse with inspiration indicative of high central venous pressure. Aortic root appears normal. Doppler interrogation of aortic valve reveals no insufficiency and mean gradient 12 mmHg, corresponding to normal function. There is approximately mild to moderate mitral insufficiency and mild mitral stenosis. Peak gradient across the valve was 10 and mean gradient 4 mmHg. There is moderate tricuspid insufficiency. Calculated pulmonary artery pressure is at least in high 30s, based on poor quality of TR jet. I suspect that true pulmonary artery pressure is possibly even substantially higher than calculated, approximately 40 mmHg. Pulmonic valve is functionally competent. Evaluation of diastolic is inconclusive due to underlying atrial fibrillation and concomitant mitral valvular disease. CONCLUSIONS: 1. Underlying atrial fibrillation with ventricular pacing. 2. Normal left ventricular (LV) size with septal wall motion abnormality consistent with right ventricular (RV) pacing and otherwise preserved LV systolic function. 3. Dilated right ventricle. 4. Severe biatrial enlargement. 5. Normally functioning transcatheter aortic valve replacement (TAVR). 6. Mitral clip present. Mild to moderate insufficiency and mild stenosis of mitral valve. 7. Moderate tricuspid insufficiency. 8. Small to moderate size, but noncompressive, pericardial effusion. 9. High central venous pressure and at least moderate pulmonary hypertension. 10. Left pleural effusion. 11. Pacemaker lead apparent in right-sided heart chambers. 12. Suspicion for patent foramen ovale (PFO) with left to right shunt based on color Doppler imaging. MTDD
[2020-11-08] VITALS: BP 114/69
[2020-11-08 04:00] VITALS: BP 131/96
[2020-11-08 05:25] LABS: ALBUMIN 2.5 GM/DL (3.2-5.2); BILIRUBIN,TOTAL 0.7 MG/DL (0.2-1.0); CALCIUM LEVEL 8.4 MG/DL (8.8-10.2); CREATININE FOR GFR 1.2 MG/DL (0.55-1.30); GLOMERULAR FILTRATION RATE 45.9 (>32); MAGNESIUM LEVEL 1.6 MG/DL (1.8-2.4); POTASSIUM SERUM 3.9 MEQ/L (3.5-5.1); TOTAL PROTEIN 6.5 GM/DL (6.4-8.2)
[2020-11-08] MEDS: LEVOTHYROXINE 88MCG TABLET (0.088 MG) PO SCH (06:12)
--- NOTE | 2020-11-08 06:43 | IPN ---
PROGRESS NOTE DATE: 11/07/2020 SUBJECTIVE: I saw Mrs. Grissom on my rounds early in the morning. She tells me that she is feeling better than she did yesterday. She was able to sleep. She does not have any dyspnea at rest and she was able to briefly get out of bed. Denies any chest discomfort. Review of telemetry reveals principally atrial fibrillation with intermittent ventricular pacing but overall controlled ventricular rate. OBJECTIVE: VITAL SIGNS: Her vital signs reveals a blood pressure of 112/75, heart rate mostly in the 70s. She is afebrile and saturation was 92 to 95% on 1-2 liters of oxygen via nasal cannula. Her fluid balance yesterday was recorded as approximately equal. She made only 650 ml of urine. Weight is recorded at 60.9 kg. GENERAL APPEARANCE: She is alert, oriented and appropriate. NECK: Her JVP is difficult to gas station manager but does not appear grossly elevated by physical exam. LUNGS: Marked improvement of her previous crackles that were present yesterday, somewhat diminished breath sounds over the bases though. HEART: Systolic ejection murmur over the aortic valve and there is also blowing holosystolic murmur best heard at the apex. ABDOMEN: Soft, no tenderness. No peripheral edema. Peripheral pulses are palpable. NEUROLOGIC: She is alert and oriented and for the most part appropriate. LABORATORY DATA: Sodium is 139, potassium is 5.0, BUN 36, creatinine 1.4, glucose is 111, magnesium is 1.9, troponin was trending down, as of yesterday around lunchtime it was 2.4, albumin was 2.3. CBC: WBC count 11.7, hemoglobin 9.2, hematocrit is 25, platelet 171,000. Digoxin level was 1.4. An echocardiogram that was performed yesterday revealed preserved left ventricular systolic function with overall estimated EF of around 60%, septal wall motion abnormality consistent with RV pacing. There is a TAVR that has no insufficiency and no stenosis. There is a mitral clip present. There is mild mitral stenosis and mild to moderate mitral insufficiency, at least moderate tricuspid insufficiency was seen, the study was suggestive of elevated central venous pressure and at least mild and more likely moderate pulmonary hypertension. ASSESSMENT AND PLAN: Mrs. Grissom is an 80-year-old female who has known chronic atrial fibrillation, pacemaker placement, coronary artery disease with remote coronary interventions and history of TAVR and mitral clip placement. She presented with atrial fibrillation with RVR and secondary respiratory failure, probably principally triggered by tachycardia. She also was relatively hypotensive. She markedly improved initially with BiPAP but most importantly with rate control. Because she was hypotensive, Digoxin was utilized and chronic Cardizem has been on hold. She continues to improve principally because her rate is under better control. Based on physical exam and echocardiogram, she still remains volume overloaded. She has a high CVP, high pulmonary artery pressure, small pericardial effusion and there is evidence for both mitral stenosis and mitral insufficiency. As far as managed is concerned for the atrial fibrillation, I agree with the continuation of Eliquis at a reduced dose at 2.5 mg b.i.d. as her creatinine and age call for reduced dose. As far as the rate control is concerned, I would continue Digoxin probably at 0.125 mg daily dose. The level will have to be rechecked in about five to seven days. If it is not sufficient, I would recommend to add small dose of Cardizem that she was on an outpatient basis. As far as congestive heart failure is concerned, even though I did not initially clearly appreciate by physical exam, it seems to be evident by echocardiogram. Because she has functional mitral stenosis, she is very sensitive to tachycardia and consequently rate controlled with the utmost importance. She was put back on her chronic torsemide dose which I believe is acceptable while watching her clinical status. If necessary, the dose of diuretic can be increased. As far as coronary artery disease is concerned, she had troponin elevation without obvious wall motion abnormality on echocardiogram and without chest discomfort. Her EKG is non-diagnostic because she is predominately paced. The decision was made to continue medical management which I believe is appropriate. Patient is a DNI and DNR is chronically followed by Dr. Zamora in the [place] area. She will return to his care after discharge. I do think she will have to stay in the hospital for at least 1 or 2 additional days. JUDY
[2020-11-08] MEDS: TIOTROPIUM INHALER/CAPSULE (SPIRIVA) INH SCH (07:09)
[2020-11-08 08:09] LABS: BASO # 0.1 10^3/uL (0.0-0.2); BASO % 0.8 % (0.0-1.0); EOS # 0.2 10^3/uL (0.0-0.5); EOS % 1.6 % (0.0-3.0); HEMATOCRIT 35.1 % (36.0-47.0); LYMPH # 1.7 10^3/uL (1.5-5.0); LYMPH % 16.8 % (24.0-44.0); MEAN CORPUSCULAR HEMOGLOBIN 31.2 pg (27.0-33.0); MEAN CORPUSCULAR HGB CONC 32.5 g/dl (32.0-36.5); MEAN CORPUSCULAR VOLUME 96.2 fl (80.0-96.0); MONO % 9.5 % (2.0-8.0); NEUTROPHILS # 7.2 10^3/uL (1.5-8.5); NEUTROPHILS % 70.8 % (36.0-66.0); PLATELET COUNT, AUTOMATED 227 10^3/uL (150-450); RED BLOOD COUNT 3.65 10^6/uL (4.00-5.40); WHITE BLOOD COUNT 10.2 10^3/uL (4.0-10.0)
[2020-11-08] MEDS ORDERED: ELIQ2.5T PO (08:12)
[2020-11-08] MEDS ORDERED: DIGO0.123 PO (08:12)
[2020-11-08] MEDS ORDERED: CEFD300CAP PO (08:12)
[2020-11-08 08:14] LABS: HEMOGLOBIN 11.4 g/dl (12.0-15.5)
[2020-11-08] MEDS ORDERED: PANTOPRAZOLE 40MG TAB (PROTONIX) PO ONE (09:00)
[2020-11-08] MEDS ORDERED: CLOTRIMAZOLE 10 MG TROCHE MT SCH (09:00)
[2020-11-08] MEDS: ASPIRIN 81MG ENTERIC TABLET PO SCH (10:12)
[2020-11-08] MEDS: ATORVASTATIN 20 MG TAB PO SCH (10:12)
[2020-11-08] MEDS: APIXABAN 2.5 MG TAB (ELIQUIS) PO SCH (10:13)
[2020-11-08] MEDS: CYANOCOBALAMIN 500 MCG TAB PO SCH (10:13)
[2020-11-08] MEDS: CEFDINIR 300 MG CAP (OMNICEF) PO SCH (10:13)
[2020-11-08] MEDS: GABAPENTIN 100 MG CAP PO SCH (10:13)
[2020-11-08] MEDS: TORSEMIDE 10 MG TABLET PO SCH (10:13)
--- NOTE | 2020-11-08 21:41 | DS.PDOC ---
Discharge Summary General Date of Admission Nov 05, 2020 at 19:44 Date of Discharge Sunday, November 08, 2020 Attending Physician: EDMUNDO ALCANTAR MD Specialist/Consultants Involve: Jose F Banks MD Discharge Summary PROCEDURES PERFORMED DURING STAY: None ADMITTING DIAGNOSES: Sepsis secondary to possible community-acquired pneumonia Elevated troponins Acute hypoxia complicated by acute pulmonary edema Atrial fibrillation with rapid ventricular response Lactic acidosis Elevated bilirubin Acute renal failure on possible chronic kidney disease History of asthma History of hypothyroidism DISCHARGE DIAGNOSES: Sepsis secondary to possible community-acquired pneumonia, significantly improved Elevated troponins, improved Acute hypoxia from hyperventilation in the setting of a verbal argument, resolved Acute pulmonary edema, significantly improved Atrial fibrillation/atrial flutter with rapid ventricular response, rate became controlled and patient was stable Hypotension likely secondary to beta-blockade and diuretics, resolved Lactic acidosis, resolved Direct hyperbilirubinemia, resolved Acute renal failure, improved History of asthma History of hypothyroidism Small to moderate pericardial effusion Left pleural effusion Congestive hepatopathy on abdomen ultrasound COMPLICATIONS/CHIEF COMPLAINT: Pneumonia/ Sepsis. HISTORY OF PRESENT ILLNESS: Donita is an 80yo female w/ notable PMHx of coronary artery disease status post first diagonal artery stent (2019), TAVR (2018), chronic atrial fibrillation with history of sick sinus syndrome and placement of pacemaker on Eliquis, hypertension, dyslipidemia, asthma, and mild dementia who presented to the [facility] ED late on the evening of 11/05 due to the chief complaint of sudden acute dyspnea while riding in a car with her daughter and engaging in an argument. Patient is a [place] of [place], [place] and was in town visiting her daughter. Upon presentation in the ED, patient was found to be in atrial fibrillation with rapid ventricular response (heart rate of 150). Initial blood pressure was on 138/76 she was saturating at 97% on 4 L of nasal cannula oxygen. She was initially given IV metoprolol 5 mg followed by 25 mg orally. Her initial oxygen saturation was 67%, although multiple readings in the minutes thereafter were in the high 90s percent. Subsequently there was some desaturations and the patient was started on BiPAP. She was also administered 105 mg IV Solu-Medrol. Heart rate improved after metoprolol to 95 bpm, but patient became hypotensive with systolic blood pressure at 85. She was administered fluid bolus (500 cc normal saline) which improved her pressures, but unfortunately she developed acute flash pulmonary edema and was administered IV diuretics. Relevant initial labs showed BNP of 3624 (no priors due to the patient being from out of the area), WBC 19.6, lactic acid 8.2, elevated total bilirubin of 1.6, serum creatinine of 1.52 (baseline unknown). Imaging in the ED showed bilateral infiltrates with small pleural effusion. Patient was administered 2 g of cefepime while still in the ED. Patient was subsequently admitted under the care of the hospitalist service for management of sepsis secondary to possible community-acquired pneumonia, along with atrial fibrillation with rapid ventricular response. HOSPITAL COURSE: The admitting overnight hospitalist consulted the cardiology service who recommended giving a loading dose of 0.5 mg IV digoxin. Digoxin proved ultimately successful in controlling patient's rate. Patient was then started on maintenance dosing of 0.25 mg every 8 hours. Patient's acute hypoxia was initially thought to be secondary to the possible community-acquired pneumonia, but on review of further laboratory studies, ABG was unremarkable and it was ultimately felt that patient's hypoxia was secondary to hyperventilation that occurred while in the midst of the argument. Her respiratory status was further worsened by the acute pulmonary edema as a result of the fluid bolus. The patient was intolerant of BiPAP and switched to high flow oxygen in the form of Vapotherm. Duo nebs were scheduled and her home inhalers for asthma were continued. As part of the septic work-up, blood cultures were checked along with a sputum culture. Patient also had a possible acute kidney injury (creatinine is 1.52) but not totally sure due to unknown baseline. Her home Eliquis was continued. In addition to the cefepime that was started, she also received a dose of vancomycin and an MRSA screen was ordered. Atypical pneumonia labs were also ordered. In addition to all of the above, the patient actually had rising troponin level. Her initial level was 0.9 which ultimately chrsitine to zenith of 3.66 around 2 AM on 11/06. There were attempts by the admitting team to transfer the patient to one of three facilities ([facility], [facility]), but all three facilities had no bed availability's. Ultimately on collaborative conversation with consulted sandblast operator (Dr. Banks) decision was made for patient to remain at [facility] and received medical management. In the setting of the elevated troponin, EKGs were done showing the atrial fibrillation with rapid ventricular response. Apparently the patient was given a single dose of full aspirin and initially started on Lovenox. Lovenox was soon discontinued and patient was switched back over to her home Eliquis. An echo was ordered in the setting of the A. fib with RVR as well as the pulmonary edema; echo results showed underlying atrial fibrillation with ventricular pacing, severe biatrial enlargement, and estimated ejection fraction of 60 to 65%, normal left ventricular size and wall motion abnormality was seen of the right ventricle pacing. In addition, there was moderate tricuspid insufficiency, a small to moderately sized but noncompressive pericardial effusion, a mitral clip with mild to moderate insufficiency and mild stenosis of the mitral valve, high central venous pressure and at least moderate pulmonary hypertension, a left pleural effusion and also a suspicion for a patent foraminal ovale with left to right shunt based on color Doppler imaging. On 11/07, digoxin level was within normal limits at 1.4. Upon ultimate discharge, patient was continued on daily digoxin in the form of 0.125 mg. Patient remained in atrial fibrillation throughout the inpatient stay, but her rate stayed controlled after initially receiving the loading dose of digoxin upon admission. At no point during her hospital stay did patient report any chest pain, chest pressure, or palpitations. Patient's breathing status significantly improved throughout her stay. She was transitioned quickly off of Vapotherm to nasal cannula supplemental oxygen on 11/06. By 11/07, patient was saturating well on room air. Once her blood pressures were consistently normotensive, her home diuretic dose of torsemide 20 mg daily was continued. As it relates to her acute kidney injury, unable to assess for chronic kidney disease because no baseline renal function is known since patient is from out of the area. Creatinine did improve during stay from 1.5 down to 1.3; and as stated above, her home torsemide dosing was resumed when she became normotensive. Patient's leukocytosis steadily improved from admission on through her ultimate discharge. Initial white count was 19 and it came all the way down to 10.2 on (day of discharge). She was switched over to oral antibiotics (cefdinir on 11/07) after receiving one dose of vancomycin on 11/05 (this was discontinued after negative MRSA screen) and 3 days of IV cefepime. Blood cultures x2 showed no growth at 24 hours and a urine culture also was negative for any growth. Procalcitonin was remarkable at four. Upon discharge, patient was given a prescription to complete seven total days of antibiotics in the form of oral cefdinir 300 mg daily. Patient initially had direct hyperbilirubinemia on admission which resolved during her stay. She denied any abdominal pain/nausea/vomiting and had an unremarkable physical exam from a GI standpoint on 11/06 through 11/08. A liver ultrasound was done which showed hepatomegaly and congestive hepatopathy. A pericardial effusion was incidentally found on chest CT and was read as small to moderate in size on echocardiogram with no tamponade. Ultimately, the final plan upon discharge was for patient to complete the 7 days of total antibiotics in the form of cefdinir for four more days (this was sent to her pharmacy). Per the instruction of Dr. Banks (cardiology), a prescription was sent for patient to take 0.125 mg daily of digoxin. A prescription was also written for patient to get a digoxin level within the next week. Patient is to follow-up with her primary care physician in the next 3 to 5 days and with her sandblast operator in the next week. She was instructed to resume her home diltiazem, which per records shows was dose is a slow release 120 mg. Patient will maintain on her 2.5 mg twice daily Eliquis dosing. DISCHARGE MEDICATIONS: Please see below. ALLERGIES: Please see below. PHYSICAL EXAMINATION ON DISCHARGE: VITAL SIGNS: Please see below. GENERAL: Pleasant elderly female lying in ICU bed on supplemental nasal cannula oxygen. She appears in no acute distress. HEENT: Normocephalic, atraumatic. Noninjected, anicteric sclera. She has mild conjunctival pallor bilaterally. PERRLA. Oral cavity: Edentulous. MMM. No pharyngeal erythema or exudate appreciated. Neck: Trachea midline. No lymphadenopathy appreciated. CARDIOVASCULAR: Patient now off telemetry. Regular rate, irregularly irregular rhythm. There is a physiological split of S2 (best appreciated over the right second parasternal intercostal space). 2/6 systolic murmur best appreciated over the left second parasternal intercostal space. 2+ radial pulses bilaterally. RESPIRATORY: Patient is saturating well on room air. No conversational dyspnea. The crackles that were present on previous exams significantly improved to just mild bibasilar crackles at time of discharge. No accessory muscle use. Symmetric chest expansion. Chest: Pacemaker in place over left upper chest. There are multiple scattered brownish colored macules and papules overlying the neck and chest. ABDOMINAL: Soft, nondistended and nontender. There is no guarding or rigidity. Normoactive bowel sounds present. No CVA tenderness. EXTREMITIES: There is trace pitting edema bilateral lower extremities. 2+ radial pulses bilaterally. NEUROLOGICAL: No gross focal neurologic deficits appreciated. Nondysarthric speech. LABORATORY DATA: Please see below. IMAGING: Portable chest x-ray, 11/05/2020 FINDINGS: Tubes, catheters and devices: Dual chamber cardiac pacer demonstrated with intact wires. Lungs: Bilateral airspace infiltrates. Pleural spaces: Possible small left pleural effusion. Heart/Mediastinum: Status post TAVR. Bones/joints: Status post ORIF proximal left humerus. IMPRESSION: 1. Bilateral airspace infiltrates. 2. Possible small left pleural effusion. Chest CT without contrast, 11/05/2020 FINDINGS: Tubes, catheters and devices: Left chest pacemaker. Trachea: Small amount of aspirated material in the trachea. Lungs: Extensive patchy bilateral airspace and ground-glass opacities. Pleural spaces: Small right and small to moderate left pleural effusions with adjacent compressive atelectasis. Heart: Status post aortic valve replacement. Cardiomegaly. Severe atherosclerotic disease of the coronary arteries. Small pericardial effusion. Coarsely calcified mitral annulus. Aorta: Atherosclerotic disease of the thoracic aorta. Lymph nodes: Unremarkable. No enlarged lymph nodes. Liver: Mild hepatomegaly. Bones/joints: Status post open reduction internal fixation of a healing left humeral neck fracture. Severe multilevel degenerative disease of the thoracic spine. Degenerative changes in the bilateral acromioclavicular joints. Mild scoliosis. Soft tissues: Unremarkable. IMPRESSION: Small right and small to moderate left pleural effusions with adjacent compressive atelectasis. Extensive patchy bilateral airspace and ground-glass opacities. Suspect congestive heart failure. Cardiomegaly. Small pericardial effusion. Liver ultrasound, 11/06/2020 FINDINGS: Liver: Mild hepatomegaly. Heterogeneity of the liver parenchyma. Gallbladder: Normal. No gallstones. There is no gallbladder wall thickening. Common bile duct: Normal. No stones. No dilation. Pancreas: Visualized pancreas is unremarkable. Right kidney: 1.2 x 1.4 x 1.6 cm simple right renal cyst. IMPRESSION: Hepatomegaly and generalized nonspecific heterogeneity of the liver parenchyma. Congestive hepatopathy is in the differential. Transthoracic echocardiogram, 11/06/2020 FINDINGS: This study is of good technical quality. Underlying atrial fibrillation with ventricular pacing. Left ventricle is of normal size. There is septal wall motion abnormality consistent with right ventricular pacing, but overall preserved left ventricular (LV) systolic function. Estimated left ventricular ejection fraction (LVEF) 60-65%. I do not appreciate any additional wall motion abnormalities. Right ventricle is dilated and hypokinetic. There is severe biatrial enlargement. There is bioprosthetic aortic valve that was poorly visualized. This patient has known transcatheter aortic valve replacement (TAVR). There are very heavy degenerative abnormalities of mitral valve with severe mitral annular calcifications and thickening of mitral leaflets. Mitral clip is seen. Tricuspid valve appears normal. Pulmonic valve also appears normal. There is a small to moderate size circumferential, but noncompressive, pericardial effusion. Inferior vena cava is dilated and there is limited collapse with inspiration indicative of high central venous pressure. Aortic root appears normal. Doppler interrogation of aortic valve reveals no insufficiency and mean gradient 12 mmHg, corresponding to normal function. There is approximately mild to moderate mitral insufficiency and mild mitral stenosis. Peak gradient across the valve was 10 and mean gradient 4 mmHg. There is moderate tricuspid insufficiency. Calculated pulmonary artery pressure is at least in high 30s, based on poor quality of TR jet. I suspect that true pulmonary artery pressure is possibly even substantially higher than calculated, approximately 40 mmHg. Pulmonic valve is functionally competent. Evaluation of diastolic is inconclusive due to underlying atrial fibrillation and concomitant mitral valvular disease. CONCLUSIONS: 1. Underlying atrial fibrillation with ventricular pacing. 2. Normal left ventricular (LV) size with septal wall motion abnormality consistent with right ventricular (RV) pacing and otherwise preserved LV systolic function. 3. Dilated right ventricle. 4. Severe biatrial enlargement. 5. Normally functioning transcatheter aortic valve replacement (TAVR). 6. Mitral clip present. Mild to moderate insufficiency and mild stenosis of mitral valve. 7. Moderate tricuspid insufficiency. 8. Small to moderate size, but noncompressive, pericardial effusion. 9. High central venous pressure and at least moderate pulmonary hypertension. 10. Left pleural effusion. 11. Pacemaker lead apparent in right-sided heart chambers. 12. Suspicion for patent foramen ovale (PFO) with left to right shunt based on color Doppler imaging. PROGNOSIS: Fair ACTIVITY: As tolerated DIET: 2 g sodium DISPOSITION: 01 Home, Self-Care. DISCHARGE INSTRUCTIONS & ITEMS TO FOLLOWUP ON ON OUTPATIENT: -Please follow-up with your primary care physician within the next 3 to 5 days. -Please follow-up with your sandblast operator (Dr. Zamora in [facility]) in the next 1-2 weeks. -Please take prescribed antibiotic (cefdinir) for the next 4 days to complete a 7-day course. -Please take digoxin 0.125 mg daily and follow-up with this when you see your sandblast operator next. -Please get a digoxin level from a laboratory blood draw in 5 to 7 days. -Please take Eliquis medication at newly prescribed reduced dose of 2.5 mg daily. -Please resume your home diltiazem dosing. -Please limit your fluid restriction to 1.5 L (approximately 6 glasses of water) in a day/24-hour period. -Please resume all other home medications as previously prescribed. -Please try to avoid high stress situations which may exacerbate hyperventilation and hypoxia similar to this hospital presentation. -Should your presenting symptoms from this admission return and/or acutely worsen, please present to the emergency department for evaluation. -Please comply with the above treatment plan. -Thank you for the opportunity to participate in your care. DISCHARGE CONDITION: Stable TIME SPENT ON DISCHARGE: 39 minutes. Vital Signs/I&Os Vital Signs Date Time Temp Pulse Resp B/P (MAP) Pulse Ox O2 Delivery O2 Flow Rate FiO2 11/08/20 04:00 98.8 97 18 131/96 (108) 91 Room Air 11/07/20 08:00 1.0 11/06/20 07:06 60 I&O- Last 24 Hours up to 6 AM 11/08/20 06:00 Intake Total 720 ml Output Total 3200 ml Balance -2480 ml Laboratory Data Labs 24H Laboratory Tests 2 11/08/20 04:47: Immature Granulocyte % (Auto) 0.5, Neutrophils (%) (Auto) 70.8H, Lymphocytes (%) (Auto) 16.8L, Monocytes (%) (Auto) 9.5H, Eosinophils (%) (Auto) 1.6, Basophils (%) (Auto) 0.8, Neutrophils # (Auto) 7.2, Lymphocytes # (Auto) 1.7, Monocytes # (Auto) 1.0H, Eosinophils # (Auto) 0.2, Basophils # (Auto) 0.1, Nucleated Red Blood Cells % (auto) 0.0, Anion Gap 6L, Glomerular Filtration Rate 45.9, Calcium Level 8.4L, Magnesium Level 1.6L, Total Bilirubin 0.7, Aspartate Amino Transf (AST/SGOT) 33, Alanine Aminotransferase (ALT/SGPT) 30, Alkaline Phosphatase 100, Total Protein 6.5, Albumin 2.5L, Albumin/Globulin Ratio 0.6L CBC/BMP Laboratory Tests 11/08/20 04:47 Microbiology Microbiology 11/06/20 Urine Culture - Final, Complete 11/05/20 Blood Culture - Preliminary, Resulted No Growth after 48 hours. All Specime... 11/05/20 Blood Culture - Preliminary, Resulted No Growth after 48 hours. All Specime... Discharge Medications Scheduled Apixaban (Eliquis) 2.5 Mg Tablet, 2.5 MG PO BID Aspirin (Aspirin EC) 81 Mg Tablet.dr, 81 MG PO DAILY, (Reported) Atorvastatin Calcium (Atorvastatin Calcium) 40 Mg Tablet, 40 MG PO DAILY, (Reported) Cefdinir (Cefdinir) 300 Mg Capsule, 300 MG PO DAILY Clotrimazole (Clotrimazole) 10 Mg Fozia, 10 MG MT DAILY, (Reported) Cyanocobalamin (Vitamin B-12) (Vitamin B-12) 1,000 Mcg Tablet, 1,000 MCG PO D AILY, (Reported) Digoxin (Digoxin) 125 Mcg Tablet, 125 MCG PO DAILY Folic Acid/Multivit-Min/Lutein (Multi-Vitamin Gummies) 1 Each Tab.chew, 1 CHW PO DAILY, (Reported) Gabapentin (Gabapentin) 100 Mg Capsule, 100 MG PO TID, (Reported) Levothyroxine Sodium (Synthroid) 88 Mcg Tablet, 88 MCG PO DAILY, (Reported) Pantoprazole Sodium (Pantoprazole Sodium) 40 Mg Tablet.dr, 40 MG PO BID, (Reported) Potassium Chloride (Potassium Chloride) 10 Meq Tab.er.prt, 10 MEQ PO DAILY, (Reported) Sodium Chloride (Ria-128) 2% Drops, 1 DROP OU BID, (Reported) Tiotropium [place] (Spiriva) 18 Mcg Cap.w.dev, 1 INHALATION INH DAILY, (Reported) Torsemide (Torsemide) 10 Mg Tablet, 20 MG PO DAILY, (Reported) Scheduled PRN Nitroglycerin (Nitrostat) 0.4 Mg Tab.subl, 0.4 MG SL NITRO PRN for CHEST PAIN, (Reported) Allergies Coded Allergies: ciprofloxacin (Verified Allergy, Unknown, 11/06/20) GME ATTESTATION My faculty preceptor for this patient encounter was physically present during the encounter and was fully available. All aspects of the patient interview, examination, medical decision making process, and medical care plan development were reviewed and approved by the faculty preceptor. The faculty preceptor is aware and concurs with the plan as stated in the body of this note and will attest to such by his/her cosignature. ATTENDING NOTE I personally examined the patient today and she is doing well and is back on room air, normotensive and rate controlled. She did very well with PT and was cleared for safe discharge home. I discussed her findings, investigative results with the resident team and I agree with the above noted findings, assessment and plan. JANINE CAMPOS D.O. Nov 08, 2020 21:41 EDMUNDO ALCANTAR MD Nov 09, 2020 09:15
--- NOTE | 2020-11-09 05:33 | ECGEPIP ---
[facility] - ED Test Date: 2020-11-05 Pat Name: GERMAIN DUBON Department: Room: [place] [address] Gender: Female Lna: BINA : 1940 Requested By: GOMEZ ROSSI Order Number: [id number] Reading MD: Song Olivas Measurements Intervals Moran Rate: 152 P: [place]: QRS: -19 QRSD: 160 T: 136 QT: 344 QTc: 546 Interpretive Statements Atrial fibrillation with rapid ventricular response Left bundle branch block NO PRIORS FOR COMPARISON Electronically Signed on 11-09-2020 5:33:12 EDT by Song Olivas
== END 2020-11-08 10:55 | disposition home or self-care (01) | DRG 871 ==
LOC: M ED 19:43 → M ICU 19:44 → ENRESERV 23:12 → M PCU 11-07 15:43
PROVIDERS: ADMIT Family Medicine; ATTEND Internal Medicine
DX: A41.9 Sepsis, unspecified organism (principal); J18.9 Pneumonia, unspecified organism; J81.0 Acute pulmonary edema; J96.01 Acute respiratory failure with hypoxia; I24.8 Other forms of acute ischemic heart disease; N17.9 Acute kidney failure, unspecified; E87.2 Acidosis; I48.92 Unspecified atrial flutter; I48.20 Chronic atrial fibrillation, unspecified; J45.909 Unspecified asthma, uncomplicated; I25.10 Atherosclerotic heart disease of native coronary artery without angina pectoris; Z95.2 Presence of prosthetic heart valve; Z95.0 Presence of cardiac pacemaker; Z79.01 Long term (current) use of anticoagulants; I10 Essential (primary) hypertension; E78.5 Hyperlipidemia, unspecified; F03.90 Unspecified dementia, unspecified severity, without behavioral disturbance, psychotic disturbance, mood disturbance, and anxiety; I36.0 Nonrheumatic tricuspid (valve) stenosis; Z79.82 Long term (current) use of aspirin; Z79.899 Other long term (current) drug therapy; Z88.8 Allergy status to other drugs, medicaments and biological substances; E80.6 Other disorders of bilirubin metabolism; Z66 Do not resuscitate